=== PATIENT | female | born 1990 | race Caucasian/White ===

== ENCOUNTER → 2018-06-05 | Outpatient (CLI) | payer OTHER ==
[~2018-06-05] MED LIST: GADOBUTROL 7.5 MMOL/7.5 ML PFS ONE
== END | disposition home or self-care (01) ==
LOC: CFH 09:19
PROVIDERS: ATTEND Psychiatry & Neurology Neurology
DX: H46.8 Other optic neuritis (principal); G35 Multiple sclerosis; H53.8 Other visual disturbances
CPT/HCPCS: 70543; A9585

== ENCOUNTER → 2020-05-18 | Outpatient (CLI) | payer OTHER | END | disposition home or self-care (01) | LOC: RAD 18:38 | PROVIDERS: ATTEND Family Medicine | DX: M79.662 Pain in left lower leg (principal) ==